=== PATIENT | female | born 1970 | race Caucasian/White ===

== ENCOUNTER 2018-05-13 07:00 | Day surgery (SDC) | payer BC ==
[~2018-05-13] VITALS: Ht 157.5 cm; Wt 81.7 kg
--- NOTE | ~2018-05-13 | OR ---
[facility] [address] [place], [place] [address] Draft DATE OF OPERATION: 05/13/2018 SURGEON: Romario Nguyen MD PREOPERATIVE DIAGNOSIS: Fracture dislocation, right ankle. POSTOPERATIVE DIAGNOSIS: Fracture dislocation, right ankle. PROCEDURE PERFORMED: Open reduction and internal fixation of fibula. ANESTHESIA: General. SPECIMENS AND COMPLICATIONS: There were no specimens or complications. TOURNIQUET TIME: About 45 minutes. WHAT WAS DONE: The patient was taken to the operating room. After anesthesia was induced and airway secured, the patient was positioned, prepped, and draped in a routine sterile fashion. The leg was exsanguinated with elevation. Pneumatic tourniquet was inflated to 300 mmHg pressure about the thigh. We then provisionally reduced the ankle and templated for a 7-hole 1/3 semitubular plate. Straight lateral approach was made over the fibula through skin and subcutaneous tissue. Self-retaining retractor was placed. The fracture was gently distracted and a small curette was used to remove some debris from the fracture site. We were then able to effect a reduction and secure it with a pointed reduction forceps. The fracture was then secured with a 7-hole 1/3 semitubular plate with the middle hole being placed as a lag screw for compression of the fracture. AP and lateral fluoroscopy confirmed a stable construct and an anatomic reduction. The wound was gently irrigated and closed in a standard fashion. Slightly bulky dressing was applied and she was placed back into her fracture boot. She was awakened and taken to recovery room, where she arrived in stable condition. Counts were correct and antibiotic protocols were followed. PATIENT NAME: MARQUEZ DELVALLE OPERATIVE REPORT DATE OF : 66 REPORT #: [id number] PHYSICIAN: ROMARIO NGUYEN MD PCP: NO PRIMARY CARE PHYSICIAN REPORT IS CONFIDENTIAL AND NOT TO BE RELEASED WITHOUT AUTHORIZATION [address] [place] [address] Draft MD BAUDILIO Almaraz/HA /[id number] Copies: ~ PATIENT NAME: MARQUEZ DELVALLE OPERATIVE REPORT DATE OF : 66 REPORT #: [id number] PHYSICIAN: ROMARIO NGUYEN MD PCP: NO PRIMARY CARE PHYSICIAN REPORT IS CONFIDENTIAL AND NOT TO BE RELEASED WITHOUT AUTHORIZATION
[~2018-05-13 07:00] MED LIST: NORCO 5-325 TA1 EACH PO; PERCOCET 5-3251 EACH PO; PERCOCET 7.5-31 EACH PO
[2018-05-13] MEDS ORDERED: ULTRAM50 MG PO (07:19)
--- NOTE | 2018-05-13 10:28 | NUR ---
05/13/18 1028 Terrie Randall 1003- PT ARRIVES TO PACU COUGHING CONTINUOUSLY AND SPITTING UP PHLEGM. PT ON 6L VIA MASK. OXYGEN SAT HIGH 80'S TO LOW 90'S ON THIS. JOHN FRENCH, INDEPENDENT BEAUTY CONSULTANT AT THE BEDSIDE AND GIVING RACEMIC EPI NEB. 1005- PT'S OXYGEN TURNED UP TO 10L VIA MASK. PT CONTINUES TO COUGH. PT TRYING TO TAKE DEEP BREATHS. LUNGS ARE CLEAR THROUGHOUT. 1007- PT IS CALMER AND REPORTS SHE FEELS LIKE SHE IS BREATHING MUCH BETTER. OXYGEN SAT LOW TO MID 90'S ON 10L VIA MASK. 1013- PT IS SHIVERING AND REPORTS SHE IS COLD. PT GIVEN WARM BLANKETS AND WARM AIR STARTED. PT IS NEEDING REMINDERS TO TAKE DEEP BREATHS AND COUGH. PT ON 6L VIA MASK. OXYGEN SAT LOW TO MID 90'S ON THIS. 1015- PT REPORTS PAIN TO BE A 7/10. PT IS VERY DROWSY AND FALLS ASLEEP WHEN NOT BEING TALKED TO. PT'S OXYGEN SAT INTERMITTENTLY DROPS DOWN TO THE HIGH 80'S ON 6L VIA MASK. EDUCATED PT AT THIS TIME IT WOULD NOT BE SAFE TO ADMINISTER PAIN MEDICATIONS. PT STATES UNDERSTANDING AND INSTANTLY FALLS BACK TO SLEEP. 1027- PT REMAINS ASLEEP. AROUSABLE TO VERBAL STIMULI. RESP EVEN AND UNLABORED. OXYGEN SAT LOW TO MID 90'S ON 6L VIA MASK.
--- NOTE | 2018-05-13 11:23 | NUR ---
PT ARRIVES TO DS TREATMENT ROOM FROM RECOVERY AWAKE AND ALERT. PT RESP EVEN AND UNLABORED. PT SATS ABOVE 94% ON RA. PT DENIES ANY NAUSEA AND RATES PAIN 5/10 IN RIGHT ANKLE "THROBBING." PT PROVIDED ICED WATER AND PUDDING AND EDUCATED ABOUT PAIN MANAGEMENT. CALL LIGHT WITHIN REACH. DC CRITERIA EXPLAINED TO PT.
--- NOTE | 2018-05-13 12:15 | NUR ---
PATIENT ASSISTED TO THE BATHROOM BY HER ROLLING KNEE SCOOTER. PATIENT USES THAT WELL. PATIENT VOIDS AND IS BACK IN BED. ICE AND ELEVATION TO RIGHT ANKLE IS PLACED. PATIENT REPORTS AN INCREASE IN PAIN AFTER AMBULATING. NO ORDERS FOR PAIN MEDICINE CURRENTLY. WILL CONTINUE TO MONITOR. CALL LIGHT IS W/IN REACH.
--- NOTE | 2018-05-13 13:07 | NUR ---
PT RESTING IN BED WITH EYES CLOSED UPON ARRIVAL TO PT ROOM. PT SPOUSE AT BEDSIDE STATES, "SHE'S BEEN SLEEPING." PT AWAKES ON ARRIVAL, RESPONDS TO VERBAL STIMULATION. PT DENIES ANY N/V AND RATES PAIN 4/10 AND STATES THAT IT IS COMFORTABLE. DC CRITERIA EXPLAINED AND PT AWARE THAT SHE CAN DC WHEN SHE IS READY. CALL LIGHT WITHIN REACH.
--- NOTE | 2018-05-13 13:53 | NUR ---
1315: PT USES CALL LIGHT TO NOTIFY RN THAT SHE IS READY TO GO HOME. PT SPOUSE ASSISTS PT IN GETTING DRESSED. DC INSTRUCTIONS GIVEN IN PRESENCE OF PT AND SPOUSE. PT DID NOT RECEIVE PAIN MEDICATION SCRIPT ON DC PER MD. PT TRANSFERS SELF WELL TO . SPOUSE PULLS PERSONAL VEHICLE TO MAIN ENTRANCE OF HOSPITAL, PT DC FROM TREATMENT RM VIA HOME.
== END 2018-05-13 13:30 | disposition home or self-care (01) ==
LOC: OPS 07:00 → DS 07:00 → OPS 08:00 → DS 08:00 → OPS 13:30
PROVIDERS: Orthopaedic Surgery
PROC: 0QSJ04Z Reposition Right Fibula with Internal Fixation Device, Open Approach (ICD-10-PCS; principal; 2018-05-13 08:00)
DX: S82.831A Other fracture of upper and lower end of right fibula, initial encounter for closed fracture (principal); G47.33 Obstructive sleep apnea (adult) (pediatric); F40.240 Claustrophobia; Z88.0 Allergy status to penicillin; Z88.5 Allergy status to narcotic agent; Z88.6 Allergy status to analgesic agent
CPT/HCPCS: 01480; 62322; 64445; 73600; 76942; C1713; J0131; J0690; J0735; J1100; J1885; J2250; J2405; J2704; J2765; J3010; J7120

== ENCOUNTER 2023-02-21 13:56 | Emergency (ER) | payer BC ==
[~2023-02-21] VITALS: Ht 157.5 cm; Wt 81.7 kg
[~2023-02-21 13:56] MED LIST changes: +ULTRAM50 MG PO
[2023-02-21] MEDS ORDERED: HYDROCODON-ACE1 EA11 PO (16:03)
[2023-02-21 16:24] VITALS: BP 135/74
== END 2023-02-21 16:26 | disposition home or self-care (01) ==
LOC: ED 13:56
DX: S83.92XA Sprain of unspecified site of left knee, initial encounter (principal); X50.1XXA Overexertion from prolonged static or awkward postures, initial encounter; Z88.0 Allergy status to penicillin; Z88.5 Allergy status to narcotic agent; Z88.8 Allergy status to other drugs, medicaments and biological substances
CPT/HCPCS: 73560; 99283-25; A9270

== ENCOUNTER 2024-08-09 11:49 | Day surgery (SDC) | payer BC ==
[~2024-08-09] VITALS: Ht 154.9 cm; Wt 84.1 kg
[~2024-08-09 11:49] MED LIST changes: +HYDROCODON-ACE1 EA11 PO; +IBLOOD GLUCOSE TEST STRIP 1 EA TEST VI PRN; +LACTATED RINGER'S 1,000 ML IV SCH; +LIDOCAINE HCL 1% 5 ML SDV INJ ONE; +MIDAZOLAM HCL 5 MG/5 ML VIAL IV PRN; +MULTI VITAMIN1 EACH PO; +VITAMIN D350 MC3 PO; +fentaNYL citrate 100 MCG/2 ML VIAL IV PRN
[2024-08-09 12:09] VITALS: BP 143/87
[2024-08-09] MEDS ORDERED: fentaNYL citrate 100 MCG/2 ML VIAL ONE (12:45)
[2024-08-09] MEDS ORDERED: MIDAZOLAM HCL 5 MG/5 ML VIAL ONE (12:45)
--- NOTE | 2024-08-09 13:38 | NUR ---
08/09/24 1338 Lala Mittal 1326- PT ARRIVES TO PACU, LEFT LATERAL POSITION. DROWSY BUT WAKES AND ANSWERS QUESTIONS. PT DENIES PAIN AND NAUSEA. LR INFUSING TO RFA IV, O2 AT 2L PER NC, BREATHING EVEN AND NON LABORED. ABD SOFT, NON DISTENDED. ENCOURAGED TO PASS GAS. ALL MONITORS IN PLACE. PT FALLS TO SLEEP. 1336- DR LLOYD AT BEDSIDE TO DISCUSS FINDINGS, PT WAKES EASILY TO VERBAL STIMULI, VERBALIZES UNDERSTANDING.
[2024-08-09 14:06] VITALS: BP 123/80
--- NOTE | 2024-08-11 11:32 | OR ---
[facility] [address], [place] [address] Signed DATE OF OPERATION: 08/09/2024 SURGEON: John Lloyd MD PREOPERATIVE DIAGNOSES: 1. Colon screening. 2. Recently resolved diarrhea related to Questran treatment (history of cholecystectomy). POSTOPERATIVE DIAGNOSIS: Sigmoid diverticulosis. No evidence of polyps or colitis. PROCEDURE: Total colonoscopy to cecum with biopsy of cecum and rectum. ANESTHESIA: Intravenous sedation fentanyl 100 mcg, Versed 4 mg. INDICATION: This 54-year-old woman is a patient of RENE Nieves. She was referred for screening colonoscopy having never undergone colonoscopy in the past. Upon discussion, she had a considerable amount of watery diarrhea not associated with bleeding. She has been taking loperamide for symptom control of her diarrhea. Quite notably, she did undergo cholecystectomy in 1994. She did not have diarrhea initially following her operation. Given that history, however, I did recommend Questran be taken and she began that therapy and that has completely resolved her diarrhea. She is here nevertheless for screening colonoscopy at this time. The risk of bleeding, infection, and perforation related to colonoscopy was discussed with her in detail. She understands and wished to proceed. FINDINGS: The prep was excellent. Complete colonoscopy was undertaken of the cecum. Biopsies were taken of the cecum and rectum, though the mucosa appeared normal, so as to rule out occult colitis (collagenous colitis, etc.) She had numerous diverticula of the sigmoid and left colon, but no evidence of stricture impediment to passage of the scope. DESCRIPTION OF PROCEDURE: The patient was brought to the endoscopy suite, placed in lateral decubitus position, given intravenous sedation to the point of slurred speech and nystagmus. Digital rectal examination was normal. The Olympus video colonoscope was passed in the rectum and manipulated throughout the colon noting numerous diverticula of the sigmoid and left Electronically Signed By: JOHN LLOYD MD 08/11/24 1132 PATIENT NAME: MARQUEZ DELVALLE OPERATIVE REPORT DATE OF : 66 REPORT #: [id number] PHYSICIAN: JOHN LLOYD MD PCP: JOSE G TELLEZ PAC REPORT IS CONFIDENTIAL AND NOT TO BE RELEASED WITHOUT AUTHORIZATION [facility] [address], [place] [address] Signed colon. The scope was ultimately advanced to the cecum. Ileocecal valve and appendiceal orifice were normal. Biopsies were taken of the cecum to rule out occult colitis. The scope was then withdrawn and examination throughout showed no sign of abnormality other than diverticulitis scattered throughout the colon, but most dominantly in the sigmoid. Retroflexed view of the rectum was normal. Biopsies taken of the rectum also. The scope was removed and the patient was taken to the recovery room in good condition. CONCLUDING DIAGNOSES: 1. Diverticulosis. 2. Post cholecystectomy diarrhea, most likely now resolved with Questran; no evidence of polyps or colitis. PLAN: Recommend repeat colonoscopy in 10 years. Would have her continue with Questran for diarrhea control as needed. She will return to the ongoing care of RENE Nieves. MD LUH Berger/DEVONL /[id number] cc: Jose G Tellez PA-C Copies: ~ Electronically Signed By: JOHN LLOYD MD 08/11/24 1132 PATIENT NAME: MARQUEZ DELVALLE OPERATIVE REPORT DATE OF : 66 REPORT #: [id number] PHYSICIAN: JOHN LLOYD MD PCP: JOSE G TELLEZ PAC REPORT IS CONFIDENTIAL AND NOT TO BE RELEASED WITHOUT AUTHORIZATION
--- NOTE | 2024-08-15 17:24 | PATH ---
[facility] [address] [place], [place] [address] Signed SPECIMEN(S): A CECUM BIOPSY SPECIMEN(S): B RECTUM BIOPSY SPECIMEN SOURCE: A. CECUM BIOPSY B. RECTUM BIOPSY CLINICAL HISTORY: History of diarrhea/family history of colon cancer, diverticulosis FINAL PATHOLOGIC DIAGNOSIS: A. Cecum, biopsy: - Benign colonic mucosa with no significant pathologic abnormality. - No colitis or neoplasm identified. B. Rectum, biopsy: - Benign colonic mucosa with no significant pathologic abnormality. - No colitis or neoplasm identified. [facility] MICROSCOPIC EXAMINATION: Histologic sections of all submitted blocks are examined by light microscopy. These findings, together with the gross examination, support the pathologic diagnosis. GROSS DESCRIPTION: A. The specimen, labeled and designated "Haid, cecum biopsy," is received in formalin and consists of two del castillo soft tissue fragments, ranging from 0.6-0.7 cm. Entirely submitted in (A1). B. The specimen, labeled and designated "Haid, rectum biopsy," is received in formalin and consists of three del castillo soft tissue fragments, ranging from 0.2-0.5 cm. Entirely submitted in (B1). VB (under the direct supervision of a pathologist) The Gross Description was prepared using a voice recognition system. The report was reviewed for accuracy; however, sound-alike word errors, addition and/or deletions may occur. If there is any question about this report, please contact Client Services. ADDITIONAL NOTES: Immunohistochemical and/or in situ hybridization studies if performed in this case included appropriate positive controls that reacted as expected. This test was developed and its performance PATIENT NAME: MARQUEZ DELVALLE PATHOLOGY DATE OF : 66 REPORT #: [id number] PHYSICIAN: BARBY ROQUE PCP: JOSE G TELLEZ PAC REPORT IS CONFIDENTIAL AND NOT TO BE RELEASED WITHOUT AUTHORIZATION [facility] [address] [place] [id number] Signed characteristics determined by [facility]. It has not been cleared or approved by the U.S. Food and Drug Administration. The FDA has determined that such clearance or approval is not necessary. This test is used for clinical purposes. It should not be regarded as investigational or for research. [facility] is certified under the Clinical Laboratory Improvement Amendments of 1988 (CLIA) as qualified to perform high complexity clinical laboratory testing. PERFORMING LABORATORY: Technical component was performed by [facility], [address] [place] [id number] (CLIA# [id number]). Professional interpretation was performed by [facility], [address] [place] [id number] (CLIA#: [id number]). Diagnostician: Eduardo Wright MD Pathologist Electronically Signed 08/15/2024 Copies: ~ PATIENT NAME: MARQUEZ DELVALLE PATHOLOGY DATE OF : 66 REPORT #: [id number] PHYSICIAN: BARBY ROQUE PCP: JOSE G TELLEZ PAC REPORT IS CONFIDENTIAL AND NOT TO BE RELEASED WITHOUT AUTHORIZATION
== END 2024-08-09 14:10 | disposition home or self-care (01) ==
LOC: DS 11:49
PROVIDERS: ATTEND Surgery
PROC: 0DBP8ZZ Excision of Rectum, Via Natural or Artificial Opening Endoscopic (ICD-10-PCS; 2024-08-09)
PROC: 0DBH8ZZ Excision of Cecum, Via Natural or Artificial Opening Endoscopic (ICD-10-PCS; principal; 2024-08-09 13:00)
DX: Z12.11 Encounter for screening for malignant neoplasm of colon (principal); K57.30 Diverticulosis of large intestine without perforation or abscess without bleeding; K52.9 Noninfective gastroenteritis and colitis, unspecified; E66.9 Obesity, unspecified; Z68.35 Body mass index [BMI] 35.0-35.9, adult; Z80.0 Family history of malignant neoplasm of digestive organs; Z88.0 Allergy status to penicillin; Z88.5 Allergy status to narcotic agent; Z88.8 Allergy status to other drugs, medicaments and biological substances; Z90.49 Acquired absence of other specified parts of digestive tract
CPT/HCPCS: 99153; G0500; J2250; J3010; J7121